=== PATIENT | female | born 1975 | race Caucasian/White ===

== ENCOUNTER 2021-01-29 13:03 | Emergency (ER) | payer OTHER, SELFPAY ==
--- NOTE | 2021-01-29 13:05 | ED.BACK ---
HPI - Back Pain/Injury General Chief Complaint: Back Pain/Injury Stated Complaint: Low Back Pain Time Seen by Provider: 01/29/21 13:05 Source: patient and RN notes reviewed History of Present Illness HPI Narrative: Patient is a 45-year-old female who presents the urgent care with complaints of right-sided low back pain radiating to the right leg. Patient states that she has taken Advil without much relief. Patient denies of any urinary symptoms. Denies of any recent fall or trauma. No other acute complaints. No acute distress noted. Patient aware of the plan of care. Some parts of this dictation were generated by voice recognition software and may contain typographical and/or grammatical inaccuracies. Related Data Allergies Allergy/AdvReac Type Severity Reaction Status Date / Time No Known Allergies Allergy Verified 01/29/21 13:23 Review of Systems Review of Systems: CONSTITUTIONAL: Denies fever, chills, or sweats. EYES: Denies visual changes, redness, or discharge. ENT: Denies rhinorrhea, congestion, sore throat, or otalgia. CARDIOVASCULAR: Denies chest pain, palpitations, or edema. RESPIRATORY: Denies cough or dyspnea. GASTROINTESTINAL: Denies abdominal pain, nausea, vomiting, or diarrhea. GENITOURINARY: Denies dysuria or hematuria. SKIN: Denies rash or itching. MUSCULOSKELETAL: Reports of right-sided low back pain radiating to the right leg All other systems reviewed are negative, except as documented in HPI. PMFSH Comments At the time of my signature, I reviewed and agree with the nursing past medical, surgical, social, and family history. There is no relevant family history pertinent to the patient complaint. Exam Narrative: GENERAL: This is a well-nourished, well-developed patient, in no apparent distress. HEAD: normocephalic, atraumatic. EYES: PERRL. Sclera clear/white. Vision is grossly intact. EARS: External ears normal NOSE: External nose normal with no obvious nasal discharge, nares without redness, no rhinorrhea. THROAT: Mucous membranes moist NECK: Neck supple CARDIOVASCULAR: Regular rate and rhythm without murmurs, gallops, or rubs. RESPIRATORY: Clear to auscultation. Breath sounds equal bilaterally. No wheezes, rales, or rhonchi. SKIN: warm, intact with no suspicious lesions or rash, good texture and turgor. NEURO: awake, alert, and oriented to person, place and time. There were no obvious focal neurologic abnormalities. EXTREMITIES: No clubbing, cyanosis, or edema. BACK: Mild right-sided lumbar tenderness with positive right SLE. Course Vital Signs Vital signs: Vital Signs Temperature 99.2 F 01/29/21 13:14 Pulse Rate 80 01/29/21 13:14 Respiratory Rate 20 01/29/21 13:14 Blood Pressure 123/93 H 01/29/21 13:14 Pulse Oximetry 100 01/29/21 13:14 Temperature 99.2 F 01/29/21 13:14 Pulse Rate 80 01/29/21 13:14 Respiratory Rate 20 01/29/21 13:14 Blood Pressure 123/93 H 01/29/21 13:14 Pulse Oximetry 100 01/29/21 13:14 Reviewed-patient is informed that they may have pre-hypertension or hypertension based on a blood pressure reading in the department. I recommend the patient call the primary care provider listed on their discharge instructions or a physician of their choice this week to arrange follow-up for further evaluation of possible pre-hypertension or hypertension. MDM - Back Pain/Injury MDM Narrative Medical decision making narrative: Advised the patient to complete the steroid regimen as prescribed. Be sure to eat and drink with the medication. Use the Flexeril as needed, as a muscle relaxer. Most important to take before bed however you may take it 3 times a day as needed. Be aware that it will make you drowsy and do not recommend driving or operating heavy machinery while on the medication. Use the ibuprofen as needed. Do not take any other [id number] NSAIDs with the ibuprofen. May use ice and heat intermittently for comfort. Avoid any strenuous activity
[2021-01-29 13:14] VITALS: BP 123/93; PULSE 80; RESP 20; TEMP 37.3; O2SAT 100
== END 2021-01-29 13:29 | disposition home or self-care (01) ==
PROVIDERS: Emergency Provider Nurse Practitioner Family
DX: S39.012A Strain of muscle, fascia and tendon of lower back, initial encounter (principal); X58.XXXA Exposure to other specified factors, initial encounter
CPT/HCPCS: 99213; G0463